=== PATIENT | male | born 1980 | race Two or more races ===

== ENCOUNTER 2024-07-04 12:40 | Emergency (ER) | payer OTHER ==
[~2024-07-04] VITALS: Ht 170.2 cm; Wt 59.0 kg
[2024-07-04 12:46] VITALS: BP 114/79; O2SAT 98
[2024-07-04] MEDS ORDERED: FAMOTIDINE/PF 20 MG/2 ML VIAL ONE (13:46)
[2024-07-04] MEDS ORDERED: BARIUM SULFATE 450 ML ORAL.SUSP PO ONE (13:46)
[2024-07-04 14:09] LABS: HEMATOCRIT 38.4 % (39.0-48.0); HEMOGLOBIN 12.8 g/dL (13-16.00); MEAN CELL VOLUME 71.4 fL (80.0-100.00); MEAN CORPUSCULAR HEMOGLOBIN 23.8 pg (27.00-32.0); MEAN CORPUSCULAR HGB CONC 33.3 g/dl (32.0-36.0); PLATELET COUNT 291 K/uL (150-450); RED BLOOD COUNT 5.38 M/uL (4.00-6.00); RED CELL DISTRIBUTION WIDTH 14.9 % (11.5-14.5)
[2024-07-04 14:22] LABS: PH,URINE 5.5 (5.0-8.0); URINE APPEARANCE Clear; URINE BILIRRUBIN Negative (NEGATIVE); URINE BLOOD Negative; URINE COLOR Dark Yellow; URINE GLUCOSE Negative (NEGATIVE); URINE KETONE Trace (NEGATIVE); URINE LEUKOCYTE Trace; URINE NITRATE Negative; URINE PROTEIN 30 (NEGATIVE); URINE UROBILINOGEN 0.2 E.U./dl
[2024-07-04 14:25] LABS: URINE EPITHELIAL CELLS 2.6 uL (0.0-38.8); URINE WBC 3.7 uL (0.0-23.2)
[2024-07-04 14:27] LABS: URINE BACTERIA 3.6 uL (0.0-1933)
[2024-07-04 14:32] LABS: CALCIUM 9.9 mg/dL (8.5-10.1); CREATININE SERUM 1.18 mg/dL (0.70-1.30); GFR 66.46; POTASSIUM 4.14 mEq/L (3.5-5.1)
== END 2024-07-04 19:28 | disposition home or self-care (01) ==
LOC: ER 12:42
PROVIDERS: Emergency Medicine
DX: R10.13 Epigastric pain (principal)